=== PATIENT | male | born 2000 | race Caucasian/White ===

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

== ENCOUNTER 2020-08-26 10:48 | Emergency (ER) | payer OTHER ==
[~2020-08-26] VITALS: Ht 165.1 cm; Wt 58.4 kg
--- NOTE | 2020-08-26 10:52 | NUR ---
PT IN [facility] WHEN CALLED TO TRIAGE.
[2020-08-26] MEDS ORDERED: DIPHENHYDRAMINE 50 MG/ML, 1ML ONE (11:15)
[2020-08-26] MEDS ORDERED: FAMOTIDINE 20 MG/2 ML ONE (11:17)
[2020-08-26] MEDS ORDERED: DIPHENHYDRAMINE 25 MG CAPSULE PO ONE (12:00)
[2020-08-26] MEDS ORDERED: FAMOTIDINE 20 MG TABLET PO ONE (12:00)
[2020-08-26] MEDS ORDERED: DIPHENHYDRAMINE 50 MG/ML, 1ML IVPush ONE (12:30)
[2020-08-26 13:49] VITALS: BP 106/61
== END 2020-08-26 13:54 | disposition home or self-care (01) ==
LOC: ED 11:34
DX: R21 Rash and other nonspecific skin eruption (principal); T78.1XXA Other adverse food reactions, not elsewhere classified, initial encounter; R11.2 Nausea with vomiting, unspecified; R19.7 Diarrhea, unspecified; R00.0 Tachycardia, unspecified; F17.200 Nicotine dependence, unspecified, uncomplicated
CPT/HCPCS: 96374; 99283; J1200; J7512